=== PATIENT | female | born 1940 | race Caucasian/White ===

== ENCOUNTER → 2017-03-08 12:09 | Outpatient (CLI) | payer MEDICARE, MEDICAID ==
[2015-12-26 12:09] VITALS: BMI 26.4
[~2017-03-08 12:09] MED LIST: ALPHAGAN P15 ML EACH EYE; AMOXICILLIN875 MG PO; DIFLUCAN100 MG PO; FERROUS SULFAT325 MG PO; NORVASC5 MG PO; PAROXETINE HCL10 MG PO; PREDNISOLONE 110 ML RIGHT EYE; PRILOSEC20 MG PO; RELAFEN500 MG PO; TOPROL XL25 MG PO
== END | disposition home or self-care (01) ==
LOC: D.US 12:09
DX: N18.9 Chronic kidney disease, unspecified (principal)

== ENCOUNTER 2018-05-28 16:26 | Inpatient (IN) | payer MEDICARE, MEDICAID ==
[~2018-05-28] VITALS: Ht 154.9 cm; Wt 60.1 kg
--- NOTE | ~2018-05-28 | HP ---
PATIENT: KEN NELSON MEDICAL RECORD: [id number] ACCOUNT: [id number] LOCATION:[facility] [id number] : 42 ADMISSION DATE: 05/28/18 HISTORY AND PHYSICAL EXAMINATION DATE OF ADMISSION: 05/28/2018 CHIEF COMPLAINT: Lower GI bleed. HISTORY OF PRESENT ILLNESS: This is a 77-year-old female who had sudden onset of bright red blood per rectum approximately 1 hour prior to arriving at the Emergency Department. She had some nausea and some vomiting as well. No fever or chills. She has not had anything like this before. She states she had a colonoscopy several years ago, but we do not have a copy of it. She has had a couple of EGD by Dr. Alexander, the last one was November 2015 showing a Schatzki ring with dilatation. Her hemoglobin was 10, creatinine was 2.3 (further review of Dr. Fernando's records show her last hemoglobin in August 2017 was 10.1 and her last creatinine in August 2011 was 2.21. She is admitted to the ICU for close observation. PAST MEDICAL HISTORY: Hypertension, hyperlipidemia, osteoarthritis, osteoporosis, depression, anxiety, anemia, reflux, aortic stenosis, followed by Dr. Paige and a Radha's georgi. PAST SURGICAL HISTORY: Cholecystectomy, appendectomy. She has had cataract repair. She has had corneal transplants. She had her right eye removed couple of years ago. ALLERGIES: SULFA, CEPHALEXIN, CELEXA, DOXYCYCLINE, MORPHINE, MACROBID, ACTONEL, AND FOSAMAX. CURRENT MEDICATIONS: Paxil 20 mg a day, Xanax 0.25 mg twice a day p.r.n. anxiety, nabumetone 500 mg twice a day, HCTZ 12.5 mg once a day, amlodipine 5 mg once a day, and omeprazole 20 mg once a day. SOCIAL HISTORY: She is , lives at [facility]. FAMILY HISTORY: Father at 92. Mother at 83 of complications of a hip fracture. HABITS: Never smoked. No alcohol, no drugs. REVIEW OF SYSTEMS: GENERAL: She states she has probably lost her little weight over the last few months from not trying. HEENT: No particular sinus or allergy problems. RESPIRATORY: No history of COPD or asthma. CARDIAC: Has history of aortic stenosis, followed by Dr. Paige. 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 GENITOURINARY: No significant problems there. MUSCULOSKELETAL: Osteoarthritis, mostly in her back and hips. NEUROLOGIC: No seizures, no migraine headaches. PSYCHIATRIC: She has some depression and anxiety. PHYSICAL EXAMINATION: HISTORY AND PHYSICAL [id number] KEN NELSON VITAL SIGNS: Temperature 98.2, pulse 99, respirations 14, blood pressure 131/76. She is awake and alert, in no acute distress. Daughter at bedside. HEENT: Unremarkable. NECK: Supple. HEART: Regular rate and rhythm with IV/ systolic murmur from aortic stenosis. ABDOMEN: Soft, but little generalized tenderness, more in the lower abdomen. No guarding, no rebound, no mass. PELVIC: Not done. EXTREMITIES: No edema. LABORATORY DATA: CBC with a white count 9700, hemoglobin 10.0, hematocrit 30.9, platelets, number 316,000. Basic metabolic panel is all okay except BUN 63, creatinine 2.3. Liver functions are okay. INR 1.03. ASSESSMENT: 1. Hematochezia with lower gastrointestinal bleed. 2. History of anemia. 3. History of chronic kidney disease. 4. History of hypertension. PLAN: Close monitoring in the ICU. Dr. Danielle has been consulted. A bleeding scan has been ordered. Other tests or procedures as warranted. TRANSINT:[id number] Voice Confirmation ID: [id number] DOCUMENT ID: [id number] MARCIANO EUGENE MD at 0910 CC: [id number] DICTATION DATE: 05/28/182258 BOTTOMING MACHINE OPERATOR: 05/28/188 ADM IN [place] [id number] [place] [address]
[2018-05-28] MEDS ORDERED: RELAFEN500 MG PO (16:31)
[2018-05-28 16:58] LABS: BASOPHILS 0.3 % (0-2); EOSINOPHILS 1.8 % (0-7); HEMATOCRIT 30.9 % (36.0-48.0); IMMATURE GRANULOCYTES 0.2 % (0-5); MCH 31.5 pg (26.0-34.0); MCHC 32.4 g/dL (31.0-37.0); MCV 97.5 fL (80.0-100.0); MEAN PLATELET VOLUME 8.5 fL (7.4-10.4); MONOCYTES 1.3 % (2-11); NEUTROPHILS 90.4 % (40-80); PLATELET COUNT 316 10x3/uL (130-400); RBC 3.17 10x6/uL (4.00-5.40); RDW 13.2 % (11.5-14.5); WBC 9.7 10x3/uL (4.8-10.8)
[2018-05-28 17:15] LABS: APTT 27.4 SECONDS (22.8-39.4); INR 1.03 (0.85-1.17); PROTIME 13.1 SECONDS (11.6-15.0)
[2018-05-28 17:24] LABS: ALBUMIN 3.2 g/dL (3.4-5.0); ANION GAP 12.2 mmol/L (8-16); BILIRUBIN - TOTAL 0.9 mg/dL (0.2-1.3); CALCIUM 9.7 mg/dL (8.5-10.1); CARBON DIOXIDE 31.7 mmol/L (21.0-32.0); CREATININE - SERUM 2.3 mg/dL (0.6-1.3); POTASSIUM - SERUM 3.9 mmol/L (3.5-5.1); PROTEIN - SERUM 8.4 g/dL (6.4-8.2)
[2018-05-28 21:00] VITALS: BP 122/64
[2018-05-28 21:49] VITALS: BP 131/76; BMI 25.0
[2018-05-28 22:00] VITALS: BP 104/49; BP 120/61
[2018-05-28 22:29] LABS: HEMATOCRIT 29.3 % (36.0-48.0); HEMOGLOBIN 9.6 g/dL (12-16)
[2018-05-28 23:00] VITALS: BP 117/57
[2018-05-28] MEDS ORDERED: XANAX0.25 MG PO (23:00)
[2018-05-28] MEDS ORDERED: HYDROCHLOROTH12.5 M1 PO (23:01)
[2018-05-29] VITALS (25 sets, daily range): BP systolic 100–151; BP diastolic 45–89; Ht 154.9 cm; Wt 60.1 kg
[2018-05-29 03:26] LABS: BASOPHILS 0.6 % (0-2); EOSINOPHILS 1.3 % (0-7); HEMATOCRIT 25.8 % (36.0-48.0); HEMOGLOBIN 8.3 g/dL (12-16); IMMATURE GRANULOCYTES 0.1 % (0-5); LYMPHOCYTES 13.7 % (15-50); MCH 31.3 pg (26.0-34.0); MCHC 32.2 g/dL (31.0-37.0); MCV 97.4 fL (80.0-100.0); MEAN PLATELET VOLUME 8.7 fL (7.4-10.4); MONOCYTES 4.7 % (2-11); NEUTROPHILS 79.6 % (40-80); PLATELET COUNT 288 10x3/uL (130-400); RBC 2.65 10x6/uL (4.00-5.40); RDW 13.3 % (11.5-14.5)
[2018-05-29 03:31] LABS: INR 1.11 (0.85-1.17); PROTIME 13.9 SECONDS (11.6-15.0)
[2018-05-29 03:35] LABS: WBC 6.8 10x3/uL (4.8-10.8)
[2018-05-29 03:39] LABS: ALBUMIN 2.4 g/dL (3.4-5.0); ANION GAP 8.3 mmol/L (8-16); BILIRUBIN - TOTAL 0.53 mg/dL (0.2-1.3); CALCIUM 8.4 mg/dL (8.5-10.1); CARBON DIOXIDE 31.5 mmol/L (21.0-32.0); CREATININE - SERUM 1.9 mg/dL (0.6-1.3); POTASSIUM - SERUM 3.8 mmol/L (3.5-5.1); PROTEIN - SERUM 6.4 g/dL (6.4-8.2)
[2018-05-29 09:18] LABS: HEMATOCRIT 30.2 % (36.0-48.0); HEMOGLOBIN 9.8 g/dL (12-16)
[2018-05-29 18:58] LABS: HEMOGLOBIN 10.2 g/dL (12-16)
[2018-05-30] VITALS (11 sets, daily range): BP systolic 104–170; BP diastolic 49–74
[2018-05-30 04:22] LABS: BASOPHILS 1.1 % (0-2); EOSINOPHILS 5.4 % (0-7); HEMATOCRIT 30.5 % (36.0-48.0); HEMOGLOBIN 9.8 g/dL (12-16); LYMPHOCYTES 27.9 % (15-50); MCH 30.7 pg (26.0-34.0); MCHC 32.1 g/dL (31.0-37.0); MCV 95.6 fL (80.0-100.0); MEAN PLATELET VOLUME 8.8 fL (7.4-10.4); MONOCYTES 9.6 % (2-11); PLATELET COUNT 244 10x3/uL (130-400); RDW 14.2 % (11.5-14.5)
[2018-05-30 04:23] LABS: RBC 3.19 10x6/uL (4.00-5.40); WBC 4.6 10x3/uL (4.8-10.8)
[2018-05-30 04:28] LABS: ANION GAP 6.8 mmol/L (8-16); CALCIUM 8.7 mg/dL (8.5-10.1); CARBON DIOXIDE 31.3 mmol/L (21.0-32.0); CREATININE - SERUM 1.9 mg/dL (0.6-1.3); POTASSIUM - SERUM 4.1 mmol/L (3.5-5.1)
[2018-05-31] VITALS: BP 142/54
[2018-05-31 04:00] VITALS: BP 143/65
[2018-05-31 06:29] LABS: BASOPHILS 1.1 % (0-2); EOSINOPHILS 6.7 % (0-7); HEMOGLOBIN 10.8 g/dL (12-16); IMMATURE GRANULOCYTES 0.2 % (0-5); LYMPHOCYTES 29.7 % (15-50); MCHC 32.7 g/dL (31.0-37.0); MCV 94.8 fL (80.0-100.0); MEAN PLATELET VOLUME 8.6 fL (7.4-10.4); MONOCYTES 7.6 % (2-11); NEUTROPHILS 54.7 % (40-80); PLATELET COUNT 268 10x3/uL (130-400); RBC 3.48 10x6/uL (4.00-5.40); RDW 13.8 % (11.5-14.5); WBC 4.5 10x3/uL (4.8-10.8)
[2018-05-31 06:54] LABS: ANION GAP 12.7 mmol/L (8-16); CALCIUM 9.2 mg/dL (8.5-10.1); CARBON DIOXIDE 26.3 mmol/L (21.0-32.0); CREATININE - SERUM 1.7 mg/dL (0.6-1.3)
[2018-05-31 08:31] VITALS: BP 164/62
[2018-05-31] MEDS ORDERED: FERROUS SULFAT325 MG PO (08:55)
== END 2018-05-31 14:20 | disposition home health service (06) | DRG 379 ==
LOC: D.ER 16:26 → D.ICU 20:29 → D.MS 05-30 15:41
PROVIDERS: Family Medicine; Internal Medicine Gastroenterology
DX: K57.91 Diverticulosis of intestine, part unspecified, without perforation or abscess with bleeding (principal); E78.5 Hyperlipidemia, unspecified; M19.90 Unspecified osteoarthritis, unspecified site; M81.0 Age-related osteoporosis without current pathological fracture; K21.9 Gastro-esophageal reflux disease without esophagitis; K92.1 Melena; I12.9 Hypertensive chronic kidney disease with stage 1 through stage 4 chronic kidney disease, or unspecified chronic kidney disease; N18.9 Chronic kidney disease, unspecified; F41.8 Other specified anxiety disorders; D50.0 Iron deficiency anemia secondary to blood loss (chronic)

== ENCOUNTER 2018-08-25 00:49 | Inpatient (IN) | payer MEDICARE, MEDICAID ==
[~2018-08-25] VITALS: Ht 154.9 cm; Wt 54.4 kg
--- NOTE | ~2018-08-25 | MORECARE ---
CASE MANAGEMENT DISCHARGE SUMMARY PATIENT: KEN NELSON UNIT: [id number] ADM DATE: 08/25/18 AGE: 77 : 41 SEX: F ROOM/BED: D.2201 AUTHOR: VERNELL CONDE PHYSICIAN: REFERRING PHYSICIAN: BART FERNANDO MD DATE OF SERVICE: 09/08/18 Discharge Plan Patient Name: KEN NELSON Facility: [facility]:[place] : 1940 Planned Disposition: Inpatient Rehab Anticipated Discharge Date: Discharge Date: 09/02/2018 Expected LOS: Initial Reviewer: [email or web address] Initial Review Date: 08/25/2018 Generated: 09/08/18 12:09 pm Comments DCP- Discharge Planning Updated by [email or web address]: Ana Dill on 09/02/18 12:[address] PATIENT WILL BE DISCHARGING TO THE [facility] TO A SKILLED BED, THEY WILL PICK HER UP AT 4:30. I SPOKE WITH NEELA MENENDEZ'S DAUGHTER TO LET HER KNOW CM WILL CONTINUE TO FOLLOW AND ASSIST WITH DC PLANNING DCP- Discharge Planning Updated by [email or web address]: Ana Dill on 09/02/18 11:[address] Patient will be discharging to the [facility]. She will be going to a skilled bed. DCP- Discharge Planning Updated by [email or web address]: Ana Dill on 09/01/18 10:[address] SPOKE WITH PATIENT AND DAUGHTER ABOUT A PLAN B FOR REHAB. SHE WAS DENIED INPATIENT REHAB, BUT THE DAUGHTER WOULD LIKE DR FERNANDO TO DO A P2P. I CALLED AND LEFT MESSAGE WITH DR FERNANDO OFFICE TO SEE IF HE WOULD DO ONE. DAUGHTER SAID THAT PLAN B WOULD BE THE [facility]. GELA SIGNED BY PATIENT, IMM SERVED AND EXPLAINED TO PATIENT, CM WILL CONTINUE TO FOLLOW AND ASSIST WITH DC PLANNING NEEDED DCP- Discharge Planning Updated by [email or web address]: Ana Dill on 08/27/18 1:[address] Patient Name: KEN NELSON Admission Status: ER Accout number: [id number] Admission Date: 08-25-2018 : 1940 Admission Diagnosis:URINARY TRACT INFECTION, SITE NOT SPECIFIED Attending: BART FERNANDO Current LOS: 2 Anticipated DC Date: Planned Disposition: Inpatient Rehab Primary Insurance: [facility] [employer] Discharge Planning Comments: CM met with patient to assess discharge planning needs. Patient answered some questions, but had trouble with others, permission given to call daughter. I called Neela (daughter) to assess discharge planning needs. Neela stated that her mother lives in [facility] where she has [facility] and Care Takers who come daily and the time varies depending on the day and person. She has a walker, cane, shower chair, wheelchair, and life alert. Dr Fernando and patient would like her to go to inpatient rehab. OT and PT carline mims. Will have to wait for Auth from Insurance. CM will continue to follow and assist with DC planning. Coverstitch Elastic Attacher: Ana Dill DCPIA - Discharge Planning Initial Assessment Updated by [email or web address]: Ana Dill on 08/27/18 2:41 pm * Is the patient Alert and Oriented? Yes * How many steps to enter\exit or inside your home? * PCP * Pharmacy [facility] * Preadmission Environment Home Alone * ADLs Independent * Equipment Cane Rolling Walker Shower Chair Wheelchair * Other Equipment LIFE [employer] * List name and contact numbers for known caregivers / representatives who currently or will assist patient after discharge: NEELA ARROYO (DAUGHTER) [phone] * Verbal permission to speak to the caregivers and representatives has been obtained from the patient. Yes * Community resources currently utilized Home Health Other * Please name any agencies selected above. [facility] WHO COME EVERY DAY * Additional services required to return to the preadmission environment? Yes * Can the patient safely return to the preadmission environment? No * Has this patient been hospitalized within the prior 30 days at any hospital? No Coverage Notice Reviewer: [id number] - Ana Dill Notice Issued Date-Time: 09/01/2018 11:00 Notice Type: IM Discharge Notice Notice Delivered To: Patient Relationship to Patient: Director Of Academic Name: Delivery Method: HAND - Hand Delivered Gemini Days: Prior Verbal Notification: Recipient Understood Notice: Yes Recipient Signature: Yes Med Rec Note Co-signed by Attending: Coverage Notice Comment: Last DP export: 09/02/18 1:03 p Patient Name: KEN NELSON Page [id number] at 1109 All edits/amendments must be made on the electronic document DICTATION DATE: 09/08/181107 SMUDGER: OMAR 09/08/181107 RPT#: [id number] DC DATE:09/02/18 STATUS: DIS IN [facility] [address] [place] [address] END OF REPORT
[~2018-08-25 00:49] MED LIST changes: +HYDROCHLOROTH12.5 M1 PO; +XANAX0.25 MG PO
[2018-08-25 01:19] LABS: BASOPHILS 0.4 % (0-2); EOSINOPHILS 1.1 % (0-7); HEMATOCRIT 32.6 % (36.0-48.0); HEMOGLOBIN 11.1 g/dL (12-16); IMMATURE GRANULOCYTES 0.2 % (0-5); LYMPHOCYTES 20.7 % (15-50); MCV 93.9 fL (80.0-100.0); MEAN PLATELET VOLUME 8.1 fL (7.4-10.4); NEUTROPHILS 71.6 % (40-80); PLATELET COUNT 276 10x3/uL (130-400); RBC 3.47 10x6/uL (4.00-5.40); RDW 12.5 % (11.5-14.5); WBC 5.3 10x3/uL (4.8-10.8)
[2018-08-25 01:34] LABS: ALBUMIN 3.2 g/dL (3.4-5.0); ANION GAP 15.2 mmol/L (8-16); BILIRUBIN - TOTAL 0.49 mg/dL (0.2-1.3); CALCIUM 9.4 mg/dL (8.5-10.1); POTASSIUM - SERUM 4.2 mmol/L (3.5-5.1); PROTEIN - SERUM 7.8 g/dL (6.4-8.2)
[2018-08-25 02:35] LABS: APPEARANCE CLOUDY (CLEAR); BACTERIA MANY /hpf (NONE SEEN); BILIRUBIN NEGATIVE (NEGATIVE); COLOR YELLOW (YELLOW); EPITHELIAL CELLS RARE /hpf (0-5); GLUCOSE NEGATIVE (NEGATIVE); KETONE NEGATIVE (NEGATIVE); NITRITE POSITIVE (NEGATIVE); PROTEIN TRACE mg/dL (NEGATIVE); RED CELLS - URINE 0-5 /hpf (0-5); SPECIFIC GRAVITY 1.015 (1.005-1.020); UROBILINOGEN NORMAL (NORMAL); WHITE CELLS - URINE >50 /hpf (0-5)
[2018-08-25 02:46] VITALS: BP 162/71
[2018-08-25 06:37] VITALS: BP 147/69; BMI 22.7
[2018-08-25 07:04] LABS: BASOPHILS 0.4 % (0-2); EOSINOPHILS 0.2 % (0-7); HEMATOCRIT 31.9 % (36.0-48.0); HEMOGLOBIN 10.6 g/dL (12-16); IMMATURE GRANULOCYTES 0.2 % (0-5); LYMPHOCYTES 23.3 % (15-50); MCH 31.5 pg (26.0-34.0); MCHC 33.2 g/dL (31.0-37.0); MCV 94.9 fL (80.0-100.0); MEAN PLATELET VOLUME 8.1 fL (7.4-10.4); MONOCYTES 7.1 % (2-11); NEUTROPHILS 68.8 % (40-80); PLATELET COUNT 264 10x3/uL (130-400); RBC 3.36 10x6/uL (4.00-5.40); RDW 12.7 % (11.5-14.5); WBC 5.3 10x3/uL (4.8-10.8)
[2018-08-25 07:12] LABS: ANION GAP 14.8 mmol/L (8-16); CALCIUM 8.9 mg/dL (8.5-10.1); CARBON DIOXIDE 26.6 mmol/L (21.0-32.0); CREATININE - SERUM 1.9 mg/dL (0.6-1.3); POTASSIUM - SERUM 4.4 mmol/L (3.5-5.1)
[2018-08-25 08:47] VITALS: BP 144/60
[2018-08-25 12:00] VITALS: BMI 22.6
[2018-08-25 13:41] VITALS: Ht 154.9 cm; Wt 54.4 kg
[2018-08-25 14:09] VITALS: BP 134/60
[2018-08-25 17:27] VITALS: BP 128/72
[2018-08-25 20:00] VITALS: BP 132/63
[2018-08-26 03:24] VITALS: BP 115/46
[2018-08-26 05:48] LABS: BASOPHILS 0.5 % (0-2); HEMATOCRIT 29.7 % (36.0-48.0); HEMOGLOBIN 9.8 g/dL (12-16); IMMATURE GRANULOCYTES 0.2 % (0-5); LYMPHOCYTES 30.2 % (15-50); MCH 31.7 pg (26.0-34.0); MCV 96.1 fL (80.0-100.0); MEAN PLATELET VOLUME 8.3 fL (7.4-10.4); MONOCYTES 9.6 % (2-11); NEUTROPHILS 55.5 % (40-80); PLATELET COUNT 244 10x3/uL (130-400); RBC 3.09 10x6/uL (4.00-5.40); RDW 12.8 % (11.5-14.5); WBC 4.3 10x3/uL (4.8-10.8)
[2018-08-26 06:14] LABS: ANION GAP 10.4 mmol/L (8-16); CALCIUM 8.4 mg/dL (8.5-10.1); CARBON DIOXIDE 27.7 mmol/L (21.0-32.0); CREATININE - SERUM 1.6 mg/dL (0.6-1.3); POTASSIUM - SERUM 4.1 mmol/L (3.5-5.1)
[2018-08-26 08:00] VITALS: BP 132/71
[2018-08-26 14:49] VITALS: BP 102/48
[2018-08-26 20:14] VITALS: BP 132/62
[2018-08-27 03:30] VITALS: BP 134/55
[2018-08-27 04:30] LABS: BASOPHILS 0.4 % (0-2); EOSINOPHILS 3.6 % (0-7); HEMATOCRIT 29.3 % (36.0-48.0); HEMOGLOBIN 9.6 g/dL (12-16); LYMPHOCYTES 28.9 % (15-50); MCH 31.3 pg (26.0-34.0); MCHC 32.8 g/dL (31.0-37.0); MCV 95.4 fL (80.0-100.0); MEAN PLATELET VOLUME 8.3 fL (7.4-10.4); MONOCYTES 9.2 % (2-11); NEUTROPHILS 57.9 % (40-80); PLATELET COUNT 258 10x3/uL (130-400); RBC 3.07 10x6/uL (4.00-5.40)
[2018-08-27 04:31] LABS: WBC 5.5 10x3/uL (4.8-10.8)
[2018-08-27 04:45] LABS: ANION GAP 9.4 mmol/L (8-16); CALCIUM 8.5 mg/dL (8.5-10.1); CARBON DIOXIDE 27.2 mmol/L (21.0-32.0); CREATININE - SERUM 1.6 mg/dL (0.6-1.3); POTASSIUM - SERUM 3.6 mmol/L (3.5-5.1)
[2018-08-27 09:44] VITALS: BP 138/66
[2018-08-27 17:42] VITALS: BP 134/60
[2018-08-27 21:57] VITALS: BP 142/62
[2018-08-28 03:40] VITALS: BP 151/70
[2018-08-28 06:33] LABS: BASOPHILS 0.7 % (0-2); EOSINOPHILS 4.7 % (0-7); HEMATOCRIT 29.2 % (36.0-48.0); HEMOGLOBIN 9.8 g/dL (12-16); IMMATURE GRANULOCYTES 0.2 % (0-5); LYMPHOCYTES 28.4 % (15-50); MCH 31.7 pg (26.0-34.0); MCHC 33.6 g/dL (31.0-37.0); MCV 94.5 fL (80.0-100.0); MEAN PLATELET VOLUME 8.6 fL (7.4-10.4); MONOCYTES 9.7 % (2-11); NEUTROPHILS 56.3 % (40-80); PLATELET COUNT 281 10x3/uL (130-400); RBC 3.09 10x6/uL (4.00-5.40); RDW 13.1 % (11.5-14.5); WBC 5.8 10x3/uL (4.8-10.8)
[2018-08-28 06:55] LABS: ANION GAP 11.4 mmol/L (8-16); CALCIUM 8.6 mg/dL (8.5-10.1); CARBON DIOXIDE 28.2 mmol/L (21.0-32.0); CREATININE - SERUM 1.5 mg/dL (0.6-1.3); POTASSIUM - SERUM 3.6 mmol/L (3.5-5.1)
[2018-08-28 09:33] VITALS: BP 146/67
[2018-08-28 14:17] VITALS: BP 147/72
[2018-08-28 15:00] VITALS: BP 142/69
[2018-08-28 20:00] VITALS: BP 147/82
[2018-08-29] VITALS (7 sets, daily range): BP systolic 110–144; BP diastolic 54–74
[2018-08-29 05:25] LABS: BASOPHILS 0.5 % (0-2); EOSINOPHILS 4.2 % (0-7); HEMATOCRIT 29.2 % (36.0-48.0); HEMOGLOBIN 9.8 g/dL (12-16); LYMPHOCYTES 25.4 % (15-50); MCH 31.7 pg (26.0-34.0); MCHC 33.6 g/dL (31.0-37.0); MCV 94.5 fL (80.0-100.0); MEAN PLATELET VOLUME 8.8 fL (7.4-10.4); MONOCYTES 9.6 % (2-11); NEUTROPHILS 60.3 % (40-80); PLATELET COUNT 296 10x3/uL (130-400); RBC 3.09 10x6/uL (4.00-5.40); RDW 13.4 % (11.5-14.5); WBC 5.8 10x3/uL (4.8-10.8)
[2018-08-29 05:51] LABS: CALCIUM 8.9 mg/dL (8.5-10.1); CARBON DIOXIDE 31.1 mmol/L (21.0-32.0); CREATININE - SERUM 1.6 mg/dL (0.6-1.3); POTASSIUM - SERUM 4.1 mmol/L (3.5-5.1)
[2018-08-30 04:00] VITALS: BP 136/62
[2018-08-30 04:36] LABS: BASOPHILS 1.1 % (0-2); EOSINOPHILS 4.9 % (0-7); HEMATOCRIT 27.9 % (36.0-48.0); HEMOGLOBIN 9.4 g/dL (12-16); LYMPHOCYTES 29.6 % (15-50); MCHC 33.7 g/dL (31.0-37.0); MCV 94.9 fL (80.0-100.0); MEAN PLATELET VOLUME 8.8 fL (7.4-10.4); MONOCYTES 10.9 % (2-11); NEUTROPHILS 53.5 % (40-80); PLATELET COUNT 262 10x3/uL (130-400); RBC 2.94 10x6/uL (4.00-5.40); RDW 13.4 % (11.5-14.5); WBC 4.7 10x3/uL (4.8-10.8)
[2018-08-30 04:53] LABS: ANION GAP 13.1 mmol/L (8-16); CALCIUM 9.3 mg/dL (8.5-10.1); CARBON DIOXIDE 28.4 mmol/L (21.0-32.0); CREATININE - SERUM 1.7 mg/dL (0.6-1.3); POTASSIUM - SERUM 4.5 mmol/L (3.5-5.1)
[2018-08-30 07:00] VITALS: BP 133/77
[2018-08-30 13:22] VITALS: BP 134/80
[2018-08-30 15:46] VITALS: BP 166/57
[2018-08-30 19:58] VITALS: BP 136/69
[2018-08-31 04:00] VITALS: BP 142/71
[2018-08-31 08:30] VITALS: BP 118/65
[2018-08-31 18:10] VITALS: BP 108/54
[2018-08-31 20:22] VITALS: BP 124/58
[2018-09-01 01:06] VITALS: BP 124/53
[2018-09-01 05:17] VITALS: BP 141/74
[2018-09-01 08:16] VITALS: BP 132/62
[2018-09-01 12:33] VITALS: BP 140/70
[2018-09-01 16:32] VITALS: BP 128/66
[2018-09-01 20:59] VITALS: BP 135/62
[2018-09-02 05:31] VITALS: BP 154/64
[2018-09-02 08:08] VITALS: BP 113/61
[2018-09-02 12:04] VITALS: BP 121/66
[2018-09-02] MEDS ORDERED: MIRALAX17 GM PO (12:41)
[2018-09-02 12:49] LABS: APPEARANCE CLEAR (CLEAR); COLOR STRAW (YELLOW); GLUCOSE NEGATIVE (NEGATIVE); NITRITE NEGATIVE (NEGATIVE); PROTEIN 1+ mg/dL (NEGATIVE)
[2018-09-02 12:50] LABS: BILIRUBIN NEGATIVE (NEGATIVE); KETONE NEGATIVE (NEGATIVE); UROBILINOGEN NORMAL (NORMAL)
[2018-09-02 12:51] LABS: RED CELLS - URINE 0-5 /hpf (0-5); WHITE CELLS - URINE OCC /hpf (0-5)
[2018-09-02 12:52] LABS: BACTERIA FEW /hpf (NONE SEEN); EPITHELIAL CELLS OCC /hpf (0-5)
[2018-09-02] MEDS ORDERED: NYSTATIN15 GM TOPICAL (13:41)
== END 2018-09-02 16:44 | DRG 690 ==
LOC: D.ER 00:49 → D.MS 03:24
PROVIDERS: Family Medicine
DX: N39.0 Urinary tract infection, site not specified (principal); K59.00 Constipation, unspecified; I10 Essential (primary) hypertension; I35.0 Nonrheumatic aortic (valve) stenosis; D64.9 Anemia, unspecified; B96.20 Unspecified Escherichia coli [E. coli] as the cause of diseases classified elsewhere; Z16.20 Resistance to unspecified antibiotic; B02.9 Zoster without complications; R26.9 Unspecified abnormalities of gait and mobility